=== PATIENT | female | born 1955 | race Caucasian/White ===

== ENCOUNTER 2023-09-03 08:06 | Outpatient (CLI) | payer OTHER ==
[2023-09-03 11:09] LABS: Bilirubin Neg (Negative); Blood, Urine Negative (Negative); Clarity Clear (Clear); Glucose, Urine (Dipstick) Normal (Negative); Ketone, Urine Negative (Negative); Leukocyte 25 (Negative); Nitrite Negative (Negative); Protein, Urine (Dipstick) Negative (Neg-Trace); Specific Gravity, Urine 1.005 (1.005-1.030); Urobilinogen Normal mg/dL (Less than 2)
[2023-09-03 11:17] LABS: Hemoglobin 13.2 g/dL (12.0-15.5); Mean Corpuscular Hemoglobin 31.4 pg (27.0-33.0); Platelet Count 208 10x3/uL (150-450); RBC Distribution Width 13.1 % (11.5-14.5); Red Blood Cell (RBC) Count 4.21 10x6/uL (3.90-5.03); White Blood Cell (WBC) Count 5.4 10x3/uL (3.5-10.5)
[2023-09-03 11:34] LABS: Bacteria/HPF Rare-Few HPF (None Seen); RBC/HPF 0-3 HPF (0-3); Squamous Epithelial 0-3 HPF (0-3); WBC/HPF 0-3 HPF (0-3)
[2023-09-03 11:40] LABS: PTT 28.4 sec (22.0-33.0); Prothrombin Time 10.4 sec (9.5-12.1)
[2023-09-03 12:03] LABS: Anion Gap 13 mmol/L (10-20); BUN (Urea Nitrogen) 12 mg/dL (9.8-20.1); Calc. Creatinine Clearance 0 mL/min (70-130); Calcium 9.5 mg/dL (7.8-10.44); Carbon Dioxide 30 mmol/L (23-31); Chloride 103 mmol/L (98-107); Estimated GFR 91; Glucose 77 mg/dL (80-115); Potassium 4.4 mmol/L (3.5-5.1); Sodium 142 mmol/L (136-145)
== END 2023-09-03 08:07 | disposition home or self-care (01) ==
LOC: LABBT 08:06
PROVIDERS: ATTEND Urology
DX: Z01.818 Encounter for other preprocedural examination (principal); N20.0 Calculus of kidney
CPT/HCPCS: 80048; 81001; 85027; 85610; 85730; 87086; 93005; 93010

== ENCOUNTER 2023-09-11 07:17 | Day surgery (SDC) | payer OTHER, MEDICARE ==
[2023-09-03 08:26] VITALS: BMI 32.5
[2023-09-11] MEDS ORDERED: LevoFLOXacin D5W 500 mg (100 mL) BAG ONE (09:31)
[2023-09-11] MEDS ORDERED: Iopamidol 0 ML ONE (10:48)
[2023-09-11] MEDS ORDERED: Famotidine/PF 20 mg/2ml Vial ONE (10:48)
[2023-09-11] MEDS ORDERED: PROPOFOL 20 ML ONE (10:52)
[2023-09-11] MEDS ORDERED: fentaNYL 50 mcg/mL 1 mL Vial ONE ×3 (10:56→12:18)
[2023-09-11] MEDS ORDERED: Lidocaine 2% PF 5 ML VIAL ONE (11:04)
[2023-09-11] MEDS ORDERED: Dexamethasone 4 mg/ml Vial ONE (11:21)
[2023-09-11] MEDS ORDERED: Ondansetron PF 4 MG/2 ML Vial ONE (11:21)
[2023-09-11] MEDS ORDERED: Phenazopyridine HCl 100 MG TAB ONE (12:14)
[2023-09-11] MEDS ORDERED: Oxybutynin 5 MG TAB ONE (12:14)
[2023-09-11] MEDS ORDERED: hydrALAZINE 20 MG/ML VIAL ONE (13:02)
[2023-09-11] MEDS ORDERED: HYDROcodone/Acetaminophen 5/325 mg Tablet ONE ×2 (13:31→14:14)
[2023-09-11] MEDS ORDERED: Promethazine HCl 25 MG/ML VIAL ONE ×2 (13:50→15:26)
== END 2023-09-11 15:36 | disposition home or self-care (01) ==
LOC: SDC 07:17
PROVIDERS: ATTEND Urology
PROC: 0TC08ZZ Extirpation of Matter from Right Kidney, Via Natural or Artificial Opening Endoscopic (ICD-10-PCS; principal; 2023-09-11)
PROC: 0T768DZ Dilation of Right Ureter with Intraluminal Device, Via Natural or Artificial Opening Endoscopic (ICD-10-PCS; principal; 2023-09-11)
DX: N20.0 Calculus of kidney (principal)
CPT/HCPCS: C1713; C1747; C1769; C2617; J0360; J1100; J1956; J2001; J2405; J2550; J2704; J3010; Q9967; S0028